=== PATIENT | female | born 2000 | race Caucasian/White ===

== ENCOUNTER 2021-08-27 22:12 | Emergency (ER) | payer MEDICAID, OTHER ==
[~2021-08-27] VITALS: Ht 160 cm; Wt 83.6 kg
[2021-08-28] MEDS ORDERED: EPINEPHrine HCL 250 ML IV ONE (02:24)
[2021-08-28 03:10] VITALS: BP 125/86
== END 2021-08-28 03:22 | disposition home or self-care (01) ==
LOC: ER 22:14
DX: S93.401A Sprain of unspecified ligament of right ankle, initial encounter (principal); E66.8 Other obesity; Z68.32 Body mass index [BMI] 32.0-32.9, adult; Z88.1 Allergy status to other antibiotic agents; W18.39XA Other fall on same level, initial encounter; Y93.89 Activity, other specified; Y92.89 Other specified places as the place of occurrence of the external cause; Y99.8 Other external cause status
CPT/HCPCS: 73610; 73630; 99284; J0171